=== PATIENT | male | born 1995 | race Two or more races ===

== ENCOUNTER → 2025-04-05 | Outpatient (CLI) | payer BC, SELFPAY ==
--- NOTE | 2025-04-05 13:48 | XR_ITS ---
Examination: PA lateral chest 2 views FINDINGS: Upright PA and lateral chest 2 views Date and time: April 05, 2025 1410 hours Comparison November 08, 2017 INDICATIONS: Positive PPD FINDINGS: Normal heart size Lungs are clear. Osseous structures are intact IMPRESSION: No active disease No radiographic findings of tuberculosis
[2025-04-05 14:41] LABS: Collection Type, Urine Clean Catch; RBC,Urine 0 /hpf (0-3); Squamous Epithelial Cell,Urine 0 /hpf (0-5)
[2025-04-05 14:59] LABS: Bilirubin,Urine Negative (Negative); Blood,Urine Negative (Negative); Clarity,Urine Clear (Clear/Hazy); Color,Urine Colorless (Lt Yel-Yel); Culture Indicated,Urine Not Indicated; Glucose, Urine Negative (Negative); Ketones,Urine Negative (Negative); Leukocyte Esterase,Urine Negative (Negative); Nitrite,Urine Negative (Negative); Protein,Urine Negative (Neg - Trace); Specific Gravity,Urine 1.005 (1.001-1.035); Urobilinogen,Urine Negative mg/dL (0.0-1.0); WBC,Urine < 1 /hpf (0-5)
[2025-04-05 15:07] LABS: Phosphorous 3.5 mg/dL (2.4-5.1); Thyroid Stimulating Hormone 2.47 uIU/mL (0.55-4.78)
[2025-04-05 15:21] LABS: HIV (1&2) Antibody Rapid Non-Reactive
[2025-04-05 15:56] LABS: Hepatitis B Core Antibody IgM Non Reactive (Non React); Hepatitis B Surface Antigen Non Reactive (Non React); Hepatitis C Antibody Non Reactive (Non React)
[2025-04-10 07:02] LABS: Hepatitis B Core Ab,Total* NONREACTIVE
== END | disposition home or self-care (01) ==
LOC: CDIM 13:36 → COPL 14:16
PROVIDERS: PCP Registered Nurse; Referring Provider Registered Nurse; Visit Provider Registered Nurse
DX: Z00.00 Encounter for general adult medical examination without abnormal findings (principal); Z11.3 Encounter for screening for infections with a predominantly sexual mode of transmission; Z57.8 Occupational exposure to other risk factors
CPT/HCPCS: 36415; 71046; 81001; 84100; 84443; 86703; 86704; 86705; 86803; 87340